=== PATIENT | female | born 1990 | race Caucasian/White ===

== ENCOUNTER 2016-10-05 14:23 | Inpatient (IN) | payer OTHER ==
[~2016-10-05] VITALS: Ht 165.1 cm; Wt 63.5 kg
[2016-10-05] MEDS ORDERED: ACETAMINOPHEN 325 MG TABLET PO PRN (17:30)
[2016-10-05 18:00] VITALS: BP 124/76
[2016-10-05] MEDS ORDERED: OxyCODONE HCL 5 MG IR TABLET PO PRN (18:00)
[2016-10-05] MEDS ORDERED: LACTULOSE 20 GM/30 ML SOLUTION UDCUP PO ONE (18:00)
[2016-10-05] MEDS ORDERED: ONDANSETRON HCL 4 MG TABLET PO PRN (18:00)
[2016-10-05] MEDS: OxyCODONE HCL 5 MG IR TABLET PO PRN ×2 (18:10→23:56)
[2016-10-05] MEDS ORDERED: ALBUTEROL SULFATE HFA 90 MCG/PUFF 8 GM INHALER IH PRN (18:30)
[2016-10-05] MEDS: ACETAMINOPHEN 325 MG TABLET PO SCH ×2 (19:05→23:56)
[2016-10-05] MEDS: DOCUSATE SODIUM 100 MG CAPSULE PO SCH (20:25)
[2016-10-05] MEDS: BACITRACIN 28.4 GM OINTMENT TP SCH (20:25)
[2016-10-05] MEDS: FLUTICASONE/SALMETEROL 250 MCG-50 MCG/INH DISKUS INHALER [28] IH SCH (20:25)
[2016-10-05 20:42] LABS: APPEARANCE,URINE TURBID (CLEAR); GLUCOSE, URINE (UA) NEGATIVE (NEGATIVE); KETONES,URINE NEGATIVE (NEGATIVE); LEUKOCYTE ESTERASE ,URINE SMALL (NEGATIVE); OCCULT BLOOD,URINE NEGATIVE (NEGATIVE); PROTEIN,URINE NEGATIVE (NEGATIVE)
[2016-10-05 20:59] LABS: ADD UA MICROSCOPIC YES
[2016-10-05] MEDS ORDERED: SENNA 187 MG TABLET PO SCH (21:00)
[2016-10-05 21:27] LABS: AMORPHOUS SEDIMENT,UR Many /LPF (None Seen); RBC,URINE None Seen /HPF (0-2)
[2016-10-05] MEDS ORDERED: INFLUENZA VIRUS VACCINE QVS 2016-17 (3YR+)/PF 60 MCG/0.5 ML SYRINGE IM ONE (21:45)
[2016-10-05] MEDS ORDERED: PNEUMOCOCCAL VACCINE POLYVALENT 0.5 ML VIAL [PPSV23] IM ONE (21:45)
[2016-10-05 23:56] VITALS: BP 122/76
[2016-10-06] MEDS: OxyCODONE HCL 5 MG IR TABLET PO PRN ×4 (05:09→20:06)
[2016-10-06] MEDS: ACETAMINOPHEN 325 MG TABLET PO SCH ×4 (06:11→23:44)
[2016-10-06 07:15] LABS: ALANINE AMINOTRANSFERASE 85 U/L (12-78); ALBUMIN 2.7 g/dL (3.4-5.0); ANION GAP 10 mmol/L (8-16); ASPARTATE AMINOTRANSFERASE 104 U/L (15-37); BILIRUBIN,TOTAL 0.7 mg/dL (0.1-1.0); CALCIUM, TOTAL 7.7 mg/dL (8.8-10.5); CARBON DIOXIDE 26 mmol/L (22-29); CHLORIDE 103 mmol/L (98-107); CREATININE 0.82 mg/dL (0.60-1.30); GLOMERULAR FILTR. RATE CALC > 60 mL/min (>60); POTASSIUM 3.9 mmol/L (3.5-5.1); SODIUM SERUM 139 mmol/L (136-145); TOTAL PROTEIN, SERUM 6.1 g/dL (6.4-8.2); UREA NITROGEN, BLOOD 11 mg/dL (7-18)
[2016-10-06 07:16] LABS: BASOPHILS % (AUTO) 0.3 % (0.0-2.0); HEMATOCRIT 28.4 % (36-46); HEMOGLOBIN 9.4 g/dL (12.0-16.0); LYMPHOCYTES # (AUTO) 1.4 K/uL (1.0-4.8); MEAN CORPUSCULAR HGB CONC 33.1 G/dL (31.0-37.0); MEAN CORPUSCULAR VOLUME 88 fL (80-100); MONOCYTES # (AUTO) 0.8 K/uL (0.1-1.0); MONOCYTES % (AUTO) 8.4 % (2.0-9.0); NEUTROPHILS # (AUTO) 6.2 K/uL (1.8-7.7); NEUTROPHILS % (AUTO) 67.3 % (40.0-70.0); PLATELET COUNT (AUTO) 290 K/uL (150-450); RED BLOOD CELL COUNT(AUTO) 3.23 MIL/uL (4.00-5.20); RED CELL DISTRIBUTION WIDTH 13.6 % (11.5-14.5); WHITE BLOOD COUNT (AUTO) 9.2 K/uL (4.5-11.0)
[2016-10-06 07:32] VITALS: BP 114/74
[2016-10-06] MEDS: FLUoxetine HCL 20 MG CAPSULE PO SCH (08:44)
[2016-10-06] MEDS: CETIRIZINE HCL 10 MG TABLET PO SCH (08:44)
[2016-10-06] MEDS: FLUTICASONE/SALMETEROL 250 MCG-50 MCG/INH DISKUS INHALER [28] IH SCH ×2 (08:44→20:05)
[2016-10-06] MEDS: DOCUSATE SODIUM 100 MG CAPSULE PO SCH (08:44)
[2016-10-06] MEDS: BACITRACIN 28.4 GM OINTMENT TP SCH ×2 (08:44→20:06)
[2016-10-06] MEDS: DOCUSATE SODIUM 283 MG/5 ML MINI-ENEMA PR PRN (10:14)
[2016-10-06] MEDS ORDERED: MAGNESIUM CITRATE 300 ML ORAL SOLUTION PO ONE ×2 (12:30→19:00)
[2016-10-06 15:15] VITALS: BP 118/79
[2016-10-06] MEDS: RIVAROXABAN 10 MG TABLET PO SCH (17:32)
[2016-10-06 20:01] VITALS: BP 123/72
[2016-10-06] MEDS: SENNA 187 MG TABLET PO SCH (20:06)
[2016-10-06] MEDS: DOCUSATE SODIUM 250 MG CAPSULE PO SCH (20:06)
[2016-10-07 00:14] VITALS: BP 114/71
[2016-10-07] MEDS: OxyCODONE HCL 5 MG IR TABLET PO PRN ×5 (00:14→23:46)
[2016-10-07] MEDS: DOCUSATE SODIUM 283 MG/5 ML MINI-ENEMA PR PRN (05:49)
[2016-10-07] MEDS: ACETAMINOPHEN 325 MG TABLET PO SCH ×3 (05:49→17:30)
[2016-10-07 09:00] VITALS: BP 121/71
[2016-10-07] MEDS: DOCUSATE SODIUM 250 MG CAPSULE PO SCH ×2 (09:12→20:28)
[2016-10-07] MEDS: FLUoxetine HCL 20 MG CAPSULE PO SCH (09:12)
[2016-10-07] MEDS: MULTIVITAMINS WITH MINERALS, THERAPEUTIC TABLET PO SCH (09:12)
[2016-10-07] MEDS: CETIRIZINE HCL 10 MG TABLET PO SCH (09:12)
[2016-10-07] MEDS: FLUTICASONE/SALMETEROL 250 MCG-50 MCG/INH DISKUS INHALER [28] IH SCH ×2 (09:12→20:28)
[2016-10-07] MEDS: CYCLOBENZAPRINE HCL 10 MG TABLET PO PRN ×2 (13:09→21:16)
[2016-10-07] MEDS: BACITRACIN 28.4 GM OINTMENT TP SCH ×2 (13:40→20:28)
[2016-10-07 15:06] VITALS: BP 116/74
[2016-10-07] MEDS: CALCIUM CIT/VITAMIN D3 200 MG-250 UNITS TABLET PO SCH ×2 (15:06→20:28)
[2016-10-07] MEDS: RIVAROXABAN 10 MG TABLET PO SCH (17:30)
[2016-10-07] MEDS: SENNA 187 MG TABLET PO SCH (20:28)
[2016-10-07 23:46] VITALS: BP 115/69
[2016-10-08] MEDS ORDERED: FLUO-191 PO (03:28)
[2016-10-08] MEDS ORDERED: CETI-260 PO (03:28)
[2016-10-08] MEDS ORDERED: ALBU8.5H IH (03:28)
[2016-10-08] MEDS ORDERED: NORG1TAB69 PO (03:28)
[2016-10-08] MEDS ORDERED: CLINT30G TP (03:28)
[2016-10-08] MEDS ORDERED: ADV250 IH (03:28)
[2016-10-08] MEDS: ACETAMINOPHEN 325 MG TABLET PO SCH ×4 (05:50→17:58)
[2016-10-08] MEDS: DOCUSATE SODIUM 283 MG/5 ML MINI-ENEMA PR PRN (05:50)
[2016-10-08] MEDS: OxyCODONE HCL 5 MG IR TABLET PO PRN ×4 (06:30→20:28)
[2016-10-08 07:30] VITALS: BP 115/73
[2016-10-08] MEDS: FLUTICASONE/SALMETEROL 250 MCG-50 MCG/INH DISKUS INHALER [28] IH SCH ×2 (08:09→20:29)
[2016-10-08] MEDS: CETIRIZINE HCL 10 MG TABLET PO SCH (08:10)
[2016-10-08] MEDS: DOCUSATE SODIUM 250 MG CAPSULE PO SCH ×2 (08:10→20:28)
[2016-10-08] MEDS: MULTIVITAMINS WITH MINERALS, THERAPEUTIC TABLET PO SCH (08:10)
[2016-10-08] MEDS: BACITRACIN 28.4 GM OINTMENT TP SCH ×2 (08:10→20:29)
[2016-10-08] MEDS: FLUoxetine HCL 20 MG CAPSULE PO SCH (08:10)
[2016-10-08] MEDS: FERROUS GLUCONATE 324 MG TABLET PO SCH (08:10)
[2016-10-08] MEDS: CALCIUM CIT/VITAMIN D3 200 MG-250 UNITS TABLET PO SCH ×2 (08:10→20:28)
[2016-10-08 15:00] VITALS: BP 104/67
[2016-10-08] MEDS: RIVAROXABAN 10 MG TABLET PO SCH (17:12)
[2016-10-08] MEDS: SENNA 187 MG TABLET PO SCH (20:28)
[2016-10-08 23:45] VITALS: BP 117/66
[2016-10-09] MEDS: ACETAMINOPHEN 325 MG TABLET PO SCH ×3 (01:17→18:36)
[2016-10-09] MEDS: OxyCODONE HCL 5 MG IR TABLET PO PRN ×4 (05:25→21:30)
[2016-10-09 07:33] VITALS: BP 115/70
[2016-10-09] MEDS: FLUTICASONE/SALMETEROL 250 MCG-50 MCG/INH DISKUS INHALER [28] IH SCH ×2 (08:24→20:16)
[2016-10-09] MEDS: CETIRIZINE HCL 10 MG TABLET PO SCH (08:24)
[2016-10-09] MEDS: FERROUS GLUCONATE 324 MG TABLET PO SCH (08:25)
[2016-10-09] MEDS: DOCUSATE SODIUM 250 MG CAPSULE PO SCH ×2 (08:25→20:15)
[2016-10-09] MEDS: CALCIUM CIT/VITAMIN D3 200 MG-250 UNITS TABLET PO SCH ×2 (08:25→20:15)
[2016-10-09] MEDS: FLUoxetine HCL 20 MG CAPSULE PO SCH (08:25)
[2016-10-09] MEDS: BACITRACIN 28.4 GM OINTMENT TP SCH ×2 (08:25→20:16)
[2016-10-09] MEDS: MULTIVITAMINS WITH MINERALS, THERAPEUTIC TABLET PO SCH (08:25)
[2016-10-09] MEDS: CYCLOBENZAPRINE HCL 10 MG TABLET PO PRN (12:43)
[2016-10-09 15:20] VITALS: BP 123/60
[2016-10-09] MEDS: RIVAROXABAN 10 MG TABLET PO SCH (18:36)
[2016-10-09] MEDS: SENNA 187 MG TABLET PO SCH (20:15)
[2016-10-10] MEDS: ACETAMINOPHEN 325 MG TABLET PO SCH ×4 (00:35→18:22)
[2016-10-10 00:42] VITALS: BP 112/58
[2016-10-10] MEDS: OxyCODONE HCL 5 MG IR TABLET PO PRN ×5 (04:48→23:51)
[2016-10-10 07:45] VITALS: BP 120/69
[2016-10-10 07:50] VITALS: BP 120/69
[2016-10-10] MEDS: CETIRIZINE HCL 10 MG TABLET PO SCH (07:52)
[2016-10-10] MEDS: DOCUSATE SODIUM 250 MG CAPSULE PO SCH ×2 (07:52→20:02)
[2016-10-10] MEDS: FERROUS GLUCONATE 324 MG TABLET PO SCH (07:52)
[2016-10-10] MEDS: CALCIUM CIT/VITAMIN D3 200 MG-250 UNITS TABLET PO SCH ×2 (07:52→20:02)
[2016-10-10] MEDS: FLUTICASONE/SALMETEROL 250 MCG-50 MCG/INH DISKUS INHALER [28] IH SCH ×2 (07:52→20:02)
[2016-10-10] MEDS: FLUoxetine HCL 20 MG CAPSULE PO SCH (07:52)
[2016-10-10] MEDS: BACITRACIN 28.4 GM OINTMENT TP SCH ×2 (07:52→20:03)
[2016-10-10] MEDS: MULTIVITAMINS WITH MINERALS, THERAPEUTIC TABLET PO SCH (07:52)
[2016-10-10] MEDS ORDERED: METHOCARBAMOL 750 MG TABLET PO PRN (10:45)
[2016-10-10] MEDS: METHOCARBAMOL 500 MG TABLET PO PRN (12:44)
[2016-10-10 15:08] VITALS: BP 91/66
[2016-10-10] MEDS: RIVAROXABAN 10 MG TABLET PO SCH (17:07)
[2016-10-10] MEDS: SENNA 187 MG TABLET PO SCH (20:03)
[2016-10-10 23:50] VITALS: BP 126/68
[2016-10-11] MEDS: OxyCODONE HCL 5 MG IR TABLET PO PRN ×4 (04:50→20:31)
[2016-10-11] MEDS: ACETAMINOPHEN 325 MG TABLET PO SCH ×4 (06:03→17:33)
[2016-10-11 07:55] VITALS: BP 109/68
[2016-10-11] MEDS: BACITRACIN 28.4 GM OINTMENT TP SCH ×2 (07:58→20:31)
[2016-10-11] MEDS: CETIRIZINE HCL 10 MG TABLET PO SCH (07:58)
[2016-10-11] MEDS: CALCIUM CIT/VITAMIN D3 200 MG-250 UNITS TABLET PO SCH ×2 (07:58→20:30)
[2016-10-11] MEDS: MULTIVITAMINS WITH MINERALS, THERAPEUTIC TABLET PO SCH (07:58)
[2016-10-11] MEDS: DOCUSATE SODIUM 250 MG CAPSULE PO SCH ×2 (07:58→20:30)
[2016-10-11] MEDS: FLUTICASONE/SALMETEROL 250 MCG-50 MCG/INH DISKUS INHALER [28] IH SCH ×2 (07:58→20:31)
[2016-10-11] MEDS: FERROUS GLUCONATE 324 MG TABLET PO SCH (07:58)
[2016-10-11] MEDS: FLUoxetine HCL 20 MG CAPSULE PO SCH (07:58)
[2016-10-11 15:20] VITALS: BP 117/65
[2016-10-11] MEDS: METHOCARBAMOL 500 MG TABLET PO PRN (16:02)
[2016-10-11] MEDS: RIVAROXABAN 10 MG TABLET PO SCH (17:33)
[2016-10-11] MEDS: SENNA 187 MG TABLET PO SCH (20:30)
[2016-10-12] MEDS: ACETAMINOPHEN 325 MG TABLET PO SCH ×5 (00:19→23:42)
[2016-10-12 00:32] VITALS: BP 127/60
[2016-10-12] MEDS: OxyCODONE HCL 5 MG IR TABLET PO PRN ×6 (00:32→23:42)
[2016-10-12 07:20] VITALS: BP 111/69
[2016-10-12] MEDS: CALCIUM CIT/VITAMIN D3 200 MG-250 UNITS TABLET PO SCH ×2 (08:28→20:11)
[2016-10-12] MEDS: BACITRACIN 28.4 GM OINTMENT TP SCH ×2 (08:28→20:11)
[2016-10-12] MEDS: MULTIVITAMINS WITH MINERALS, THERAPEUTIC TABLET PO SCH (08:28)
[2016-10-12] MEDS: FLUTICASONE/SALMETEROL 250 MCG-50 MCG/INH DISKUS INHALER [28] IH SCH ×2 (08:28→20:10)
[2016-10-12] MEDS: CETIRIZINE HCL 10 MG TABLET PO SCH (08:29)
[2016-10-12] MEDS: FERROUS GLUCONATE 324 MG TABLET PO SCH (08:29)
[2016-10-12] MEDS: DOCUSATE SODIUM 250 MG CAPSULE PO SCH ×2 (08:29→20:11)
[2016-10-12] MEDS: FLUoxetine HCL 20 MG CAPSULE PO SCH (08:29)
[2016-10-12 16:34] VITALS: BP 120/74
[2016-10-12] MEDS: RIVAROXABAN 10 MG TABLET PO SCH (17:32)
[2016-10-12] MEDS: SENNA 187 MG TABLET PO SCH (20:11)
[2016-10-12 23:42] VITALS: BP 114/67
[2016-10-13] MEDS: OxyCODONE HCL 5 MG IR TABLET PO PRN ×5 (04:51→23:22)
[2016-10-13] MEDS: ACETAMINOPHEN 325 MG TABLET PO SCH ×4 (06:03→23:21)
[2016-10-13 07:20] VITALS: BP 127/73
[2016-10-13] MEDS: MULTIVITAMINS WITH MINERALS, THERAPEUTIC TABLET PO SCH (08:26)
[2016-10-13] MEDS: DOCUSATE SODIUM 250 MG CAPSULE PO SCH ×2 (08:26→20:27)
[2016-10-13] MEDS: FLUoxetine HCL 20 MG CAPSULE PO SCH (08:26)
[2016-10-13] MEDS: CALCIUM CIT/VITAMIN D3 200 MG-250 UNITS TABLET PO SCH ×2 (08:26→20:27)
[2016-10-13] MEDS: FLUTICASONE/SALMETEROL 250 MCG-50 MCG/INH DISKUS INHALER [28] IH SCH ×2 (08:26→20:27)
[2016-10-13] MEDS: FERROUS GLUCONATE 324 MG TABLET PO SCH (08:26)
[2016-10-13] MEDS: BACITRACIN 28.4 GM OINTMENT TP SCH ×2 (08:26→20:27)
[2016-10-13] MEDS: CETIRIZINE HCL 10 MG TABLET PO SCH (08:26)
[2016-10-13 13:45] VITALS: BP 137/82
[2016-10-13 14:53] VITALS: BP 103/54
[2016-10-13] MEDS: RIVAROXABAN 10 MG TABLET PO SCH (17:03)
[2016-10-13] MEDS: SENNA 187 MG TABLET PO SCH (20:27)
[2016-10-13 23:22] VITALS: BP 138/60
[2016-10-14] MEDS: OxyCODONE HCL 5 MG IR TABLET PO PRN ×4 (03:44→22:28)
[2016-10-14] MEDS: ACETAMINOPHEN 325 MG TABLET PO SCH ×3 (06:29→20:04)
[2016-10-14 07:26] VITALS: BP 115/65
[2016-10-14] MEDS: DOCUSATE SODIUM 250 MG CAPSULE PO SCH ×2 (08:28→20:05)
[2016-10-14] MEDS: FLUTICASONE/SALMETEROL 250 MCG-50 MCG/INH DISKUS INHALER [28] IH SCH ×2 (08:28→20:04)
[2016-10-14] MEDS: MULTIVITAMINS WITH MINERALS, THERAPEUTIC TABLET PO SCH (08:28)
[2016-10-14] MEDS: BACITRACIN 28.4 GM OINTMENT TP SCH ×2 (08:28→20:04)
[2016-10-14] MEDS: FERROUS GLUCONATE 324 MG TABLET PO SCH (08:28)
[2016-10-14] MEDS: CETIRIZINE HCL 10 MG TABLET PO SCH (08:28)
[2016-10-14] MEDS: FLUoxetine HCL 20 MG CAPSULE PO SCH (08:28)
[2016-10-14] MEDS: CALCIUM CIT/VITAMIN D3 200 MG-250 UNITS TABLET PO SCH ×2 (08:28→20:05)
[2016-10-14] MEDS ORDERED: RIVAROXABAN 10 MG TABLET PO SCH (17:00)
[2016-10-14 18:10] VITALS: BP 113/63
[2016-10-14] MEDS: RIVAROXABAN 10 MG TABLET PO SCH (18:23)
[2016-10-14] MEDS: SENNA 187 MG TABLET PO SCH (20:05)
[2016-10-15 00:17] VITALS: BP 119/58
[2016-10-15] MEDS: ACETAMINOPHEN 325 MG TABLET PO SCH ×5 (01:04→23:29)
[2016-10-15] MEDS: OxyCODONE HCL 5 MG IR TABLET PO PRN ×5 (03:02→23:24)
[2016-10-15 06:16] LABS: BASOPHILS % (AUTO) 0.5 % (0.0-2.0); EOSINOPHILS % (AUTO) 6.6 % (1.0-6.0); HEMATOCRIT 31.7 % (36-46); HEMOGLOBIN 10.2 g/dL (12.0-16.0); LYMPHOCYTES # (AUTO) 2.2 K/uL (1.0-4.8); LYMPHOCYTES % (AUTO) 28.1 % (22.0-44.0); MEAN CORPUSCULAR HEMOGLOBIN 28.3 pg (26.0-34.0); MEAN CORPUSCULAR HGB CONC 32.3 G/dL (31.0-37.0); MEAN CORPUSCULAR VOLUME 88 fL (80-100); MONOCYTES # (AUTO) 0.8 K/uL (0.1-1.0); NEUTROPHILS # (AUTO) 4.3 K/uL (1.8-7.7); NEUTROPHILS % (AUTO) 54.8 % (40.0-70.0); PLATELET COUNT (AUTO) 636 K/uL (150-450); RED BLOOD CELL COUNT(AUTO) 3.62 MIL/uL (4.00-5.20); RED CELL DISTRIBUTION WIDTH 13.8 % (11.5-14.5); WHITE BLOOD COUNT (AUTO) 7.9 K/uL (4.5-11.0)
[2016-10-15 06:39] LABS: ANION GAP 7 mmol/L (8-16); CALCIUM, TOTAL 8.9 mg/dL (8.8-10.5); CARBON DIOXIDE 29 mmol/L (22-29); CHLORIDE 102 mmol/L (98-107); CREATININE 0.86 mg/dL (0.60-1.30); GLOMERULAR FILTR. RATE CALC > 60 mL/min (>60); POTASSIUM 4.2 mmol/L (3.5-5.1); SODIUM SERUM 138 mmol/L (136-145); UREA NITROGEN, BLOOD 15 mg/dL (7-18)
[2016-10-15 08:30] VITALS: BP 122/70
[2016-10-15] MEDS: CALCIUM CIT/VITAMIN D3 200 MG-250 UNITS TABLET PO SCH ×2 (08:33→20:17)
[2016-10-15] MEDS: MULTIVITAMINS WITH MINERALS, THERAPEUTIC TABLET PO SCH (08:33)
[2016-10-15] MEDS: CETIRIZINE HCL 10 MG TABLET PO SCH (08:33)
[2016-10-15] MEDS: FLUoxetine HCL 20 MG CAPSULE PO SCH (08:33)
[2016-10-15] MEDS: DOCUSATE SODIUM 250 MG CAPSULE PO SCH ×2 (08:34→20:17)
[2016-10-15] MEDS: FLUTICASONE/SALMETEROL 250 MCG-50 MCG/INH DISKUS INHALER [28] IH SCH ×2 (08:34→20:17)
[2016-10-15] MEDS: FERROUS GLUCONATE 324 MG TABLET PO SCH (08:34)
[2016-10-15 15:43] VITALS: BP 114/70
[2016-10-15] MEDS: RIVAROXABAN 10 MG TABLET PO SCH (18:35)
[2016-10-15] MEDS: SENNA 187 MG TABLET PO SCH (20:17)
[2016-10-15 23:24] VITALS: BP 116/72
[2016-10-16] MEDS: OxyCODONE HCL 5 MG IR TABLET PO PRN ×4 (05:53→20:06)
[2016-10-16] MEDS: ACETAMINOPHEN 325 MG TABLET PO SCH ×3 (05:54→17:34)
[2016-10-16 08:00] VITALS: BP 114/62
[2016-10-16] MEDS: FERROUS GLUCONATE 324 MG TABLET PO SCH (08:09)
[2016-10-16] MEDS: CETIRIZINE HCL 10 MG TABLET PO SCH (08:09)
[2016-10-16] MEDS: FLUoxetine HCL 20 MG CAPSULE PO SCH (08:09)
[2016-10-16] MEDS: CALCIUM CIT/VITAMIN D3 200 MG-250 UNITS TABLET PO SCH ×2 (08:09→20:06)
[2016-10-16] MEDS: FLUTICASONE/SALMETEROL 250 MCG-50 MCG/INH DISKUS INHALER [28] IH SCH ×2 (08:09→20:06)
[2016-10-16] MEDS: MULTIVITAMINS WITH MINERALS, THERAPEUTIC TABLET PO SCH (08:09)
[2016-10-16] MEDS: DOCUSATE SODIUM 250 MG CAPSULE PO SCH ×2 (08:09→20:06)
[2016-10-16 15:30] VITALS: BP 117/74
[2016-10-16] MEDS: RIVAROXABAN 10 MG TABLET PO SCH (17:34)
[2016-10-16] MEDS: SENNA 187 MG TABLET PO SCH (20:06)
[2016-10-16] MEDS ORDERED: ACET-2247 PO (23:13)
[2016-10-16] MEDS ORDERED: FERG325 PO (23:13)
[2016-10-16] MEDS ORDERED: CALC-840 PO (23:13)
[2016-10-16] MEDS ORDERED: MULT-248 PO (23:13)
[2016-10-16] MEDS ORDERED: RIVA10 PO (23:13)
[2016-10-16] MEDS ORDERED: DOCU250C91 PO (23:13)
[2016-10-17 00:07] VITALS: BP 118/62
[2016-10-17] MEDS: OxyCODONE HCL 5 MG IR TABLET PO PRN ×3 (00:07→08:25)
[2016-10-17] MEDS: ACETAMINOPHEN 325 MG TABLET PO SCH ×2 (00:07→06:04)
[2016-10-17 06:37] LABS: BASOPHILS % (AUTO) 0.5 % (0.0-2.0); EOSINOPHILS % (AUTO) 4.6 % (1.0-6.0); HEMATOCRIT 32.7 % (36-46); HEMOGLOBIN 10.8 g/dL (12.0-16.0); LYMPHOCYTES # (AUTO) 1.8 K/uL (1.0-4.8); LYMPHOCYTES % (AUTO) 18.7 % (22.0-44.0); MEAN CORPUSCULAR HEMOGLOBIN 28.8 pg (26.0-34.0); MEAN CORPUSCULAR HGB CONC 33.1 G/dL (31.0-37.0); MEAN CORPUSCULAR VOLUME 87 fL (80-100); MONOCYTES # (AUTO) 0.8 K/uL (0.1-1.0); MONOCYTES % (AUTO) 8.5 % (2.0-9.0); NEUTROPHILS # (AUTO) 6.4 K/uL (1.8-7.7); NEUTROPHILS % (AUTO) 67.7 % (40.0-70.0); PLATELET COUNT (AUTO) 691 K/uL (150-450); RED BLOOD CELL COUNT(AUTO) 3.76 MIL/uL (4.00-5.20); RED CELL DISTRIBUTION WIDTH 13.7 % (11.5-14.5); WHITE BLOOD COUNT (AUTO) 9.5 K/uL (4.5-11.0)
[2016-10-17 07:15] VITALS: BP 118/73
[2016-10-17] MEDS: FLUoxetine HCL 20 MG CAPSULE PO SCH (08:21)
[2016-10-17] MEDS: MULTIVITAMINS WITH MINERALS, THERAPEUTIC TABLET PO SCH (08:21)
[2016-10-17] MEDS: CALCIUM CIT/VITAMIN D3 200 MG-250 UNITS TABLET PO SCH (08:21)
[2016-10-17] MEDS: CETIRIZINE HCL 10 MG TABLET PO SCH (08:21)
[2016-10-17] MEDS: DOCUSATE SODIUM 250 MG CAPSULE PO SCH (08:21)
[2016-10-17] MEDS: FLUTICASONE/SALMETEROL 250 MCG-50 MCG/INH DISKUS INHALER [28] IH SCH (08:22)
[2016-10-17] MEDS: FERROUS GLUCONATE 324 MG TABLET PO SCH (08:22)
[2016-10-17] MEDS ORDERED: OXYC10IR PO (10:05)
== END 2016-10-17 11:05 | disposition home or self-care (01) | DRG 981 ==
LOC: 2WR 17:05
PROVIDERS: ADMIT Physical Medicine & Rehabilitation; ATTEND Physical Medicine & Rehabilitation
PROC: 3E0234Z Introduction of Serum, Toxoid and Vaccine into Muscle, Percutaneous Approach (ICD-10-PCS; 2016-10-05)
PROC: 0JQC3ZZ Repair Pelvic Region Subcutaneous Tissue and Fascia, Percutaneous Approach (ICD-10-PCS; principal; 2016-10-06)
DX: S34.104A Unspecified injury to L4 level of lumbar spinal cord, initial encounter (principal); S32.401A Unspecified fracture of right acetabulum, initial encounter for closed fracture; S32.402A Unspecified fracture of left acetabulum, initial encounter for closed fracture; F33.2 Major depressive disorder, recurrent severe without psychotic features; S32.10XA Unspecified fracture of sacrum, initial encounter for closed fracture; E44.0 Moderate protein-calorie malnutrition; S32.810A Multiple fractures of pelvis with stable disruption of pelvic ring, initial encounter for closed fracture; S32.049A Unspecified fracture of fourth lumbar vertebra, initial encounter for closed fracture; S30.1XXA Contusion of abdominal wall, initial encounter; S20.219A Contusion of unspecified front wall of thorax, initial encounter; J45.909 Unspecified asthma, uncomplicated; E03.9 Hypothyroidism, unspecified; D64.9 Anemia, unspecified; E83.51 Hypocalcemia; K59.03 Drug induced constipation; T40.2X5A Adverse effect of other opioids, initial encounter; S06.0X0A Concussion without loss of consciousness, initial encounter; D47.3 Essential (hemorrhagic) thrombocythemia; R40.2413 Glasgow coma scale score 13-15, at hospital admission; V89.2XXA Person injured in unspecified motor-vehicle accident, traffic, initial encounter; Y93.89 Activity, other specified; Y92.89 Other specified places as the place of occurrence of the external cause; Z23 Encounter for immunization; Z88.2 Allergy status to sulfonamides; Y99.8 Other external cause status; Z68.23 Body mass index [BMI] 23.0-23.9, adult
CPT/HCPCS: 87081; 87086; 87106; 93970; 93971; 97110; 97116; 97163; 97167; 97530; 97535; 99366; J3535